=== PATIENT | female | born 1965 | race Caucasian/White ===

== ENCOUNTER 2020-06-30 13:26 | Outpatient (CLI) | payer OTHER ==
--- NOTE | 2020-06-30 14:02 | CT ---
CT Abdomen Pelvis WO Con History: Kidney stones. Pain Comparison: None. Findings: Lung bases are clear. Pleural effusion. Cholelithiasis without cholecystitis. Innumerable calcifications are present throughout both renal co llecting systems, measuring up to 3 mm on the left and 3 mm on the right. Multiple hypodensities of both kidneys, largest inferior pole right kidney measuring up to 14 mm like ly cysts. No hydroureteronephrosis. No dilated loops of large or small bowel. No free intraperitoneal gas or fluid. The appendix is visualized and is normal. No acute osseous normality. Mild degenerative disc space disease at L2/L3 with 2 mm retrolisthesis. Impression: 1. Small bilateral nonobstructing renal calculi throughout both renal collecting systems. No hydroure teronephrosis or secondary evidence of a recently passed stone. 2. Cholelithiasis without cholecystitis. 3. No acute inflammatory process within the abdomen or pelvis.
== END 2020-06-30 13:27 | disposition home or self-care (01) ==
LOC: BICCT 13:26
PROVIDERS: ATTEND Family Medicine
DX: R10.9 Unspecified abdominal pain (principal); K80.20 Calculus of gallbladder without cholecystitis without obstruction; N20.0 Calculus of kidney; Z87.440 Personal history of urinary (tract) infections
CPT/HCPCS: 74176

== ENCOUNTER 2021-12-22 13:28 | Emergency (ER) | payer OTHER | END 2021-12-22 15:19 | disposition home or self-care (01) | LOC: ERS 13:28 | DX: S82.831A Other fracture of upper and lower end of right fibula, initial encounter for closed fracture (principal); I25.10 Atherosclerotic heart disease of native coronary artery without angina pectoris; E78.5 Hyperlipidemia, unspecified; I10 Essential (primary) hypertension; Z87.891 Personal history of nicotine dependence ==